=== PATIENT | male | born 1965 | race Two or more races ===

== ENCOUNTER 2018-11-24 11:00 | Outpatient (AMBR) | payer MEDICAID, SELFPAY ==
--- NOTE | 2018-11-18 19:21 | PT.ODAYNRPT ---
PT Outpatient Daily Note Date of Service: November 18, 2018 OP Daily Note Visit Reasons: right shoulder post op Outpatient Physical Therapy Treatment Date: 11/18/18 Subjective: Continued shoulder weakness and fatigue but little to no pain Objective: See F/S for therex Assessment: Good exercise tolerance with low tissue irritability Plan: Continue per POC Length of Time (minutes) of Treatment: 30 Minutes Office Procedures PT Procedures PT Date of Service: 11/18/18 Therapeutic Exercise 30 minutes: Yes
--- NOTE | 2018-11-20 18:42 | PT.ODAYNRPT ---
PT Outpatient Daily Note Date of Service: November 20, 2018 OP Daily Note Visit Reasons: right shoulder post op Outpatient Physical Therapy Treatment Date: 11/20/18 Subjective: Continued shoulder weakness and fatigue but little to no pain Objective: See F/S for therex Assessment: Good exercise tolerance with low tissue irritability. Fatigues with resistance into Erot. Plan: Continue per POC Length of Time (minutes) of Treatment: 30 Minutes Office Procedures PT Procedures PT Date of Service: 11/18/18 Therapeutic Exercise 30 minutes: Yes PT Procedures PT Date of Service: 11/20/18 Therapeutic Exercise 30 minutes: Yes
--- NOTE | 2018-11-24 12:04 | PT.ODAYNRPT ---
PT Outpatient Daily Note Date of Service: November 24, 2018 OP Daily Note Pediatric or Adult Patient: Adult PT >13 Visit Reasons: right shoulder post op Outpatient Physical Therapy Treatment Date: 11/24/18 Subjective: Continued shoulder weakness and fatigue but little to no pain Objective: See F/S for therex Assessment: Improved therex tolerance today with resistive therex. Fatigues with resistance into Erot. Plan: Continue per POC Length of Time (minutes) of Treatment: 30 Minutes Office Procedures PT Procedures PT Date of Service: 11/18/18 Therapeutic Exercise 30 minutes: Yes PT Procedures PT Date of Service: 11/20/18 Therapeutic Exercise 30 minutes: Yes PT Procedures PT Date of Service: 11/24/18 Therapeutic Exercise 30 minutes: Yes
== END 2018-12-15 23:59 | disposition home or self-care (01) ==
PROVIDERS: PCP Physician Assistant Medical; Referring Provider Physician Assistant Medical; Visit Provider Orthopaedic Surgery
DX: M75.121 Complete rotator cuff tear or rupture of right shoulder, not specified as traumatic (principal); M25.511 Pain in right shoulder; R53.1 Weakness; Z98.890 Other specified postprocedural states
CPT/HCPCS: 97110

== ENCOUNTER 2019-11-20 11:35 | Outpatient (AMBR) | payer MEDICAID, SELFPAY ==
--- NOTE | 2019-11-20 13:13 | PT.ODAYNRPT ---
PT Outpatient Daily Note Date of Service: 11/20/2019 OP Daily Note Visit Reasons: left shoulder pain Outpatient Physical Therapy Treatment Date: 11/20/19 Subjective: pt states he's doing good upon visit. Objective: see flow sheet. Assessment: pt finds the new exercise wall taps using RTB more challenging but does not complain about it. he has difficulty with the flexion against resistance but still has fair ROM. MT on his shoulder and pt's shoulder felt tight during scaption and ABD motion but did better for the other motions. his flexion ROM improved a little as noted his shoulder touches the pillow a bit more than last visit. Plan: continues POC per PT. Length of Time (minutes) of Treatment: 30 Minutes
--- NOTE | 2019-11-27 15:43 | PT.ODAYNRPT ---
PT Outpatient Daily Note Date of Service: 11/27/2019 OP Daily Note Visit Reasons: left shoulder pain Outpatient Physical Therapy Treatment Date: 11/27/19 Subjective: pt doing well upon visit. he feels more improvement of the shoulder and feels MT has been a big help. Objective: see flow sheet. Assessment: during MT pt's shoulder felt relaxed and able to stretch without being guarded or resistive. added 1# ball for shoulder flexion against the wall in which he managed to complete with less resting time. his shoulder flexion was good and no compensation. overall pt doing well and progressing. Plan: continue POC per PT. Length of Time (minutes) of Treatment: 30 Minutes Office Procedures PT Procedures PT Date of Service: 11/20/19 Therapeutic Exercise 30 minutes: Yes PT Procedures PT Date of Service: 11/27/19 Therapeutic Exercise 30 minutes: Yes
--- NOTE | 2019-11-30 16:47 | PT.ODAYNRPT ---
PT Outpatient Daily Note Date of Service: 11/30/2019 OP Daily Note Visit Reasons: left shoulder pain Outpatient Physical Therapy Treatment Date: 11/30/19 Subjective: pt doing well upon visit with no new complaints. his shoulder feels better and improving with each session. Objective: see flow sheet. Assessment: during the wall taps with thera band his posture still needs improvement due to the strength of the shoulder. he is not able to keep posture straight as he tend to extend the back in order to flex the shoulder against band. which then causes him to fatigue. he does maintain the ROM with each rep. although he fatigues it does not decrease the ROM. his shoulder during MT felt stiff could be due to end of day. Plan: continue POC per PT. Length of Time (minutes) of Treatment: 30 Minutes Office Procedures PT Procedures PT Date of Service: 11/20/19 Therapeutic Exercise 30 minutes: Yes PT Procedures PT Date of Service: 11/30/19 Therapeutic Exercise 30 minutes: Yes PT Procedures PT Date of Service: 11/27/19 Therapeutic Exercise 30 minutes: Yes
--- NOTE | 2019-12-03 16:04 | PT.ODAYNRPT ---
PT Outpatient Daily Note Date of Service: 12/03/2019 OP Daily Note Visit Reasons: left shoulder pain Outpatient Physical Therapy Treatment Date: 12/03/19 Subjective: pt states his shoulder doing good. pt enjoys the MT on his shoulder as he feels it has been improving his mobility. Objective: see flow sheet. Assessment: added new exercises using thera band in which pt does need more work with. he had more muscle fatigue then he expected with those 2 exercises and made his ROM decrease. he does have slight back extension as compensations. advised him to continue at home either against wall, supine or in chair to decrease back extension. Plan: continue POC per PT. Length of Time (minutes) of Treatment: 30 Minutes Office Procedures PT Procedures PT Date of Service: 11/20/19 Therapeutic Exercise 30 minutes: Yes PT Procedures PT Date of Service: 11/30/19 Therapeutic Exercise 30 minutes: Yes PT Procedures PT Date of Service: 12/03/19 Therapeutic Exercise 15 minutes: Yes Manual Electrical And Instrumentation Mechanic 15 minutes: Yes PT Procedures PT Date of Service: 11/27/19 Therapeutic Exercise 30 minutes: Yes
--- NOTE | 2019-12-08 12:50 | PTNOTE_ITS ---
PT Outpatient Daily Note Date of Service: 12/08/19 OP Daily Note Visit Reasons: left shoulder pain Outpatient Physical Therapy Treatment Date: 12/08/19 Subjective: Pt mention that his shoulder is better. Pt notice big difference lately due to the manual therapy. Pt also stated that the stretches are feeling less tense while stretch is being performed by therapist. Objective: Please see flow chart for list of ther ex performed Assessment: tolerate exercises with minimal pain Plan: Continue with PT Length of Time (minutes) of Treatment: 30 Minutes Office Procedures PT Procedures PT Date of Service: 11/20/19 Therapeutic Exercise 30 minutes: Yes PT Procedures PT Date of Service: 11/30/19 Therapeutic Exercise 30 minutes: Yes PT Procedures PT Date of Service: 12/03/19 Therapeutic Exercise 15 minutes: Yes Manual Literacy Education Professor 15 minutes: Yes PT Procedures PT Date of Service: 11/27/19 Therapeutic Exercise 30 minutes: Yes PT Procedures PT Date of Service: 12/08/19 Therapeutic Exercise 30 minutes: Yes
== END 2019-12-16 23:59 | disposition home or self-care (01) ==
PROVIDERS: PCP Orthopaedic Surgery; Referring Provider Orthopaedic Surgery; Visit Provider Orthopaedic Surgery
DX: M25.512 Pain in left shoulder (principal); Z98.890 Other specified postprocedural states
CPT/HCPCS: 97110; 97140

== ENCOUNTER 2020-08-23 14:06 | Outpatient (AMBR) | payer MEDICAID, SELFPAY ==
--- NOTE | 2020-08-23 16:29 | PT.ODAYNRPT ---
PT Outpatient Daily Note Date of Service: 08/23/20 OP Daily Note Visit Reasons: back pain Outpatient Physical Therapy Treatment Date: 08/23/20 Subjective: Pt reports less LBP lately attributed to prone positioning and being on vacation. Objective: See f/S for therex MT: STM L/S paraspinals with [place] x10' Assessment: Good response to manual therapy and the foam roller today to reduce myofascial tension with trunk flexion and extension today. Plan: Continue per POC Length of Time (minutes) of Treatment: 30 Minutes Office Procedures PT Procedures PT Date of Service: 08/23/20 Therapeutic Exercise 15 minutes: Yes Manual Behavioral Health Consultant 15 minutes: Yes
== END 2020-09-14 23:59 | disposition home or self-care (01) ==
PROVIDERS: PCP Chiropractor; Referring Provider Chiropractor; Visit Provider Chiropractor
DX: M51.16 Intervertebral disc disorders with radiculopathy, lumbar region (principal); M54.5 Low back pain; M62.830 Muscle spasm of back
CPT/HCPCS: 97110; 97140

== ENCOUNTER → 2024-03-06 | Outpatient (CLI) | payer BC, SELFPAY ==
[2024-03-06 10:36] LABS: Basophils % (Auto) 0 % (0-2.5); Eosinophils # (Auto) 0.1 Thou/mm3 (0.0-0.5); Eosinophils % (Auto) 1 % (0-10); Immature Granulocytes % (Auto) 0 % (0-0); Immature Granulocytes Auto 0.02 Thou/mm3 (0.00-0.00); Lymphocytes # (Auto) 2.3 Thou/mm3 (1.0-4.8); Lymphocytes % (Auto) 26 % (10-50); Mean Corpuscular HGB Conc 32.6 g/dl (31.0-37.0); Mean Corpuscular Volume 92 fL (80-100); Monocytes # (Auto) 0.6 Thou/mm3 (0.0-0.8); Monocytes % (Auto) 7 % (0-12); Neutrophils # (Auto) 5.7 Thou/mm3 (1.8-7.7); Neutrophils % (Auto) 65 % (37-80); Nucleated Red Blood Cell % 0 /100 WBC (0); Platelet Count 204 Thou/mm3 (140-440); RDW Standard Deviation 45.9 fL (35.1-43.9); Red Blood Count 4.66 Miln/mm3 (4.50-5.90); White Blood Count 8.8 Thou/mm3 (3.8-10.6)
[2024-03-06 10:48] LABS: Glucose Estimated Average 123 mg/dL (80-131); Hemoglobin A1C 5.9 % Hgb (4.8-6.0)
[2024-03-06 11:07] LABS: PSA Medicare Annual Scrn 1.39 ng/mL (0-4.00)
[2024-03-06 11:08] LABS: Cardiac Risk Estimate 4.3 RATIO (4.0-6.7); Cholesterol 213 mg/dL (132-200); HDL Cholesterol 49 mg/dL (40-60); LDL Cholesterol,Calculated 140 mg/dL (0-130); Thyroid Stimulating Hormone 1.04 uIU/mL (0.55-4.78); Triglycerides 120 mg/dL (30-150)
[2024-03-06 11:11] LABS: Vitamin D 25 Hydroxy Total 31.7 ng/mL (7.3-40.2)
[2024-03-09 06:57] LABS: Fecal Globin Result NOT DETECTED (NOT DETECTED)
[2024-03-12 06:36] LABS: Sex Hormone Binding Globulin* 28 nmol/L (22-77); Testosterone, Free,Dialysis 59.4 pg/mL (35.0-155.0); Testosterone, Total, Dialysis 380 ng/dL (250-1100)
== END | disposition home or self-care (01) ==
LOC: COPL 09:57
PROVIDERS: PCP Nurse Practitioner Family; Referring Provider Nurse Practitioner Family; Visit Provider Nurse Practitioner Family
DX: E55.9 Vitamin D deficiency, unspecified (principal); E29.1 Testicular hypofunction; R53.83 Other fatigue; Z12.5 Encounter for screening for malignant neoplasm of prostate; Z12.11 Encounter for screening for malignant neoplasm of colon; Z86.39 Personal history of other endocrine, nutritional and metabolic disease
CPT/HCPCS: 36415; 80061; 82274; 82306; 83036; 84153; 84270; 84402; 84403; 84436; 84443; 85025; G0103; G0328